=== PATIENT | female | born 1940 | race Caucasian/White ===

== ENCOUNTER 2019-06-15 12:26 | Emergency (ER) | payer OTHER ==
[~2019-06-15] VITALS: Ht 157.5 cm; Wt 61.7 kg
[2019-06-15 13:05] LABS: Basophils # (auto) 0 uL; Basophils % (auto) 0.6 % (0.0-2.0); Eosinophils # (auto) 0.1 uL; Eosinophils % (auto) 1.4 % (0.0-7.0); Hemoglobin 14.6 g/dL (12.2-16.2); Lymphocytes # (auto) 2.9 uL; Lymphocytes % (auto) 49.1 % (10.0-50.0); Mean Corpuscular Hemoglobin 32.5 pg (28.0-32.0); Mean Corpuscular Hgb Conc. 34.1 g/dL (32.0-36.0); Mean Corpuscular Volume 95.5 fL (80.0-100.0); Monocytes # (auto) 0.4 uL; Neutrophils # (auto) 2.5 uL; Neutrophils % (auto) 41.9 % (37.0-80.0); Platelet Count (auto) 219 10^3/uL (140-450); Red Cell Distribution Width 13.7 % (11.8-14.3); White Blood Cell 5.9 10^3/uL (4.4-10.8)
[2019-06-15 13:08] VITALS: BP 137/51
[2019-06-15 13:24] LABS: Alanine Aminotransferase 28 U/L (13-56); Albumin 3.8 g/dL (3.4-5.0); Anion Gap 5 (5-15); Aspartate Aminotransferase 28 U/L (15-37); BUN/Creatinine Ratio 12.9; Blood Urea Nitrogen 12 mg/dL (7-18); Calcium 8.7 mg/dL (8.5-10.1); Carbon Dioxide 30 mmol/L (21-32); Chloride 106 mmol/L (98-107); GFR African American 75 mL/min; GFR Non-African American 62 mL/min; Glucose 99 mg/dL (74-106); Potassium 3.6 mmol/L (3.5-5.1); Sodium 141 mmol/L (136-145)
[2019-06-15 13:25] LABS: INR 1.24 (0.9-1.15); Partial Thromboplastin Time 28.2 sec (23.64-32.05)
[2019-06-15 13:29] LABS: Alkaline Phosphatase 91 U/L (45-117); Bilirubin, Total 1.8 mg/dL (0.2-1.0); Total Protein 7.9 g/dL (6.4-8.2)
== END 2019-06-15 14:52 | disposition home or self-care (01) ==
LOC: ER 12:34
DX: R04.0 Epistaxis (principal); I10 Essential (primary) hypertension; I48.91 Unspecified atrial fibrillation
CPT/HCPCS: 36415; 80053; 84484; 85025; 85610; 85730

== ENCOUNTER 2021-09-17 18:36 | Emergency (ER) | payer OTHER ==
[~2021-09-17] VITALS: Ht 157.5 cm; Wt 61.7 kg
[2021-09-17 18:40] VITALS: BP 177/88
== END 2021-09-17 21:40 | disposition left against medical advice (07) ==
LOC: ER 18:37
DX: R06.02 Shortness of breath (principal); I10 Essential (primary) hypertension
CPT/HCPCS: 93005